=== PATIENT | female | born 1955 | race Caucasian/White ===

== ENCOUNTER 2020-03-21 09:58 | Emergency (ER) | payer BC, SELFPAY ==
[2020-03-21 10:04] VITALS: BP 150/99; PULSE 102; TEMP 36; O2SAT 95
--- NOTE | 2020-03-21 10:15 | DI.RAD_ITS ---
EXAM: XR LUMBAR SPINE COMPLETE CLINICAL HISTORY: Sciatica left leg. TECHNIQUE: 2D digital imaging was performed. COMPARISON: No exams were available for comparison FINDINGS: There are no compression fractures. There is disc space narrowing at T12-L1 and L1-2, moderate. The re is mild narrowing of the L3-4 and L5-S1 disc. There are prominent facet degenerative changes from L 3 4 through L5-S1. There is no spondylolysis or spondylolisthesis or evidence of scoliosis. The SI joints are unremarkable. There is bilateral acetabular spurring. The hip joint spaces are well m aintained. IMPRESSION: Degenerative disc changes and facet degenerative changes, greatest at lower lumbar levels. DATA REPOSITORY: RADIATION DOSE DELIVERED:
--- NOTE | 2020-03-21 10:15 | DI.US_ITS ---
EXAM: US LOWER EXTREMITY VENOUS LT CLINICAL HISTORY: Leg pain. TECHNIQUE: Lower extremity venous ultrasound performed using grayscale, color-flow, and spectral Dop pler analysis. COMPARISON: No exams were available for comparison FINDINGS: The common femoral, femoral and popliteal veins demonstrate normal compressibility, augmentation, and color Doppler. The posterior tibial veins are patent. The saphenous vein appears free of thrombus. No Ledezma's cyst or hematoma is seen. IMPRESSION: No evidence of DVT. DATA REPOSITORY:
--- NOTE | 2020-03-21 10:29 | ED.GENADUL_ITS ---
Discharge Plan Disposition Patient Disposition: HOME Condition: Stable Discharge Details Clinical Impression: Lumbago with sciatica, left side Primary Care Provider: King Zhang ED Provider: Jaclyn Alcazar Home Meds and New Rx's Prescriptions: New cyclobenzaprine 10 mg tablet 10 mg PO TID PRN (Reason: muscle spasm) Qty: 10 RF: 0 Continued metformin 500 mg Tablet 500 mg PO BID RF: 0 aspirin 81 mg Tablet,Delayed Release (Dr/Ec) 81 mg PO DAILY RF: 0 acetaminophen [Tylenol Extra Strength] 500 mg Tablet 500 mg PO TID PRNRF: 0 oxycodone 10 mg Tablet 10 mg PO 5X/DAY PRNRF: 0 Ozempic 0.25 mg or 0.5 mg(2 mg/1.5 mL) Pen Injector 0.5 mg SUBCUT QWEEK RF: 0 Discharge Instructions Instructions: Sciatica (ED) Additional Instructions: Follow up with primary care provider in 3-5 days. Return to ED sooner if any worsening or concerns. Increase oral fluids. Please take Tylenol with food every 4-6 hours as needed for pain and swelling. Take medications as prescribed. Alternate ice and heat. Referrals: King Zhang [Primary Care Provider] - Discharge Data Discharge Date/Time-TO BE ENTERED AT DEPARTURE: 03/21/20 12:52 Medical Decision Making 64-year-old female presents to the ER with left leg pain which has been getting worse since Thursday. Patient reports some left buttock pain and pain down into her left anterior love. She does report having a history of arthritis and is concerned for possible sciatica. She has taken 2 of her 10 mg oxycodones at 6:30 AM at 930 prior to arrival. Study history of bilateral knee replacements, diabetes, osteoarthritis. She denies any other complaints of shortness of breath or chest pain. She denies noticing any significant increased swelling in her lower extremity. No erythema or warmth palpated with initial exam. Negative Homans sign. She does report increased sedentary sitting while at work for a couple hours a day. Denies any history of falls or trauma. 1115: Preliminary result received from lab support service tech negative for DVT. Patient received Valium 2mg and 500mg Acetaminophen for pain which improved pain somewhat. Xray images are pending at this time. Will DC patient home with strict return instructions and prescription for Flexeril muscle relaxer. Instructed to alternate ice and heat and follow-up with PCP. Discussed red flags and reasons to return, verbalized understanding. Discharged home. This text was generated using [employer] system, please disregard any oddities of phrase or misspellings. HPI General Mode of arrival: ambulatory . Date/Time Provider Initiated Documentation: 03/21/20 09:59 . Limitations to Documentation: no limitations . Information obtained by: patient . HPI Narrative: 64-year-old female presents to the ER with left leg pain which has been getting worse since Thursday. Patient reports some left buttock pain and pain down into her left anterior love. She does report having a history of arthritis and is concerned for possible sciatica. She has taken 2 of her 10 mg oxycodones at 6:30 AM at 930 prior to arrival. Study history of bilateral knee replacements, diabetes, osteoarthritis. She denies any other complaints of shortness of breath or chest pain. She denies noticing any significant increased swelling in her lower extremity. No erythema or warmth palpated with initial exam. Negative Homans sign. She does report increased sedentary sitting while at work for a couple hours a day. Denies any history of falls or trauma. Related Data Home Medications Medication Instructions Recorded Confirmed Ozempic 0.5 mg SUBCUT QWEEK 03/21/20 03/21/20 acetaminophen [Tylenol Extra 500 mg PO TID PRN 03/21/20 03/21/20 Strength] aspirin 81 mg PO DAILY 03/21/20 03/21/20 cyclobenzaprine 10 mg PO TID PRN #10 tab 03/21/20 metformin 500 mg PO BID 03/21/20 03/21/20 oxycodone 10 mg PO 5X/DAY PRN 03/21/20 03/21/20 Previous Rx's Medication Instructions Recorded cyclobenzaprine 10 mg PO TID PRN #10 tab 03/21/20 Allergies Allergy/AdvReac Type Severity Reaction Status Date / Time ibuprofen Allergy Unverified 03/21/20 10:10 General Stated Complaint: Orthopedic ELVIA: 4 Review of Systems Narrative: Constitutional: Negative for weight loss, alert and oriented, well groomed, normal body habitus, appears comfortable. HEENT: Denies trauma, headaches, blurry vision, nasal discharge, sore throat, trouble swallowing. Chest: Denies chest pain, palpitations, irregular rhythm, hypertension. Respiratory: Denies Shortness of breath, cough, hemoptysis. GI: Denies abdominal pain, nausea, vomiting, diarrhea, constipation. : Denies dysuria, hematuria, flank pain, rectal bleeding. Neuro: Denies dizziness, blurry vision, weakness, syncope, headache or facial numbness. Hematologic: Denies easy bruising, intolerance to heat or cold, hair loss. [facility] Social History Smoking/Tobacco Use Status: Former Tobacco Use Alcohol Intake: never Drug use: Never Substance use type: does not use Do you feel safe at home: Yes Do you feel safe in your relationship?: Yes Exam Narrative Exam Narrative: Constitutional: Alert and oriented x3. Appears stated age. Normal body habitus. Head: Normocephalic, no trauma. Eyes: Pupils PERRLA, Red reflex noted, EOM's intact. Eyelids symmetrical without lesions, discharge, or swelling. ENT: Bilateral TM's WNL, External ear normal to inspection, no mastoid TTP, swelling, or erythema, Nasal turbinates WNL, no nasal discharge. Normal dentition, Posterior pharynx WNL, no exudate. Chest: RRR, Normal S1, S2, distal pulses intact. Resp: Lungs clear to auscultation bilaterally, no wheezes, rales, or rhonchi. Musculoskeletal: Normal gait, 5/5 strength to all four extremities. Skin: No suspicious rashes or lesions. Capillary refill less than 2 sec. Neurologic: Cranial nerves II-XII intact. Alert and oriented x 3. DTR's intact. Hematologic/Lymphatic: No ecchymosis, no lymphadenopathy. Course Vital Signs Vital signs: Vital Signs Temperature 36.0 C L 03/21/20 10:04 Pulse 102 H 03/21/20 10:04 Blood Pressure 150/99 H 03/21/20 10:04 Pulse Oximetry 95 03/21/20 10:04 Temperature 36.0 C L 03/21/20 10:04 Temperature Source Temporal Artery Scan 03/21/20 10:04 Pulse 102 H 03/21/20 10:04 Respiratory Effort Non-Labored 03/21/20 10:08 Blood Pressure 150/99 H 03/21/20 10:04 Blood Pressure Position Sitting 03/21/20 10:04 Pulse Oximetry 95 03/21/20 10:04 Oxygen Delivery Method Room Air 03/21/20 10:04 Oxygen Flow Rate 0 03/21/20 10:04 Pain Level 6 03/21/20 10:04
[2020-03-21] MEDS: Acetaminophen 500 MG TAB PO (10:33)
[2020-03-21] MEDS: diazePAM 2 MG TAB PO (10:33)
[2020-03-21 11:47] VITALS: BP 116/79; PULSE 72; RESP 16; TEMP 36.7; O2SAT 96
[2020-03-21] MEDS: Lidocaine 5% Patch 1 PATCH TP (12:17)
[2020-03-21 12:49] VITALS: BP 148/85; PULSE 90; RESP 16; TEMP 36.2; O2SAT 95
[2020-03-21 12:55] VITALS: BP 148/85; PULSE 90; RESP 16; TEMP 36.2; O2SAT 95
== END 2020-03-21 12:52 | disposition home or self-care (01) ==
PROVIDERS: Emergency Provider Registered Nurse Emergency; PCP Family Medicine
DX: M54.42 Lumbago with sciatica, left side (principal); E11.9 Type 2 diabetes mellitus without complications; Z79.84 Long term (current) use of oral hypoglycemic drugs
CPT/HCPCS: 99284; 72110; 93971